=== PATIENT | female | born 1990 | race Caucasian/White ===

== ENCOUNTER 2017-12-18 18:55 | Emergency (ER) | payer OTHER, MEDICAID ==
[~2017-12-18] VITALS: Ht 154.9 cm; Wt 43.1 kg
[2017-12-18] MEDS ORDERED: PERCOCET (19:09)
[2017-12-18] MEDS ORDERED: TRAMADOL 50 MG50 MG PO (20:08)
[2017-12-18] MEDS ORDERED: ACETAMINOPHEN-1 EAC1 PO (20:17)
[2017-12-18] MEDS ORDERED: ZOFRAN4 MG PO (20:18)
[2017-12-18 20:30] VITALS: BP 103/64
== END 2017-12-18 20:31 | disposition home or self-care (01) ==
LOC: M.ERS 18:55
DX: R51 Headache (principal); M79.602 Pain in left arm; F17.200 Nicotine dependence, unspecified, uncomplicated; Z88.6 Allergy status to analgesic agent; V49.49XA Driver injured in collision with other motor vehicles in traffic accident, initial encounter; Y93.89 Activity, other specified; Y92.89 Other specified places as the place of occurrence of the external cause; Y99.8 Other external cause status